=== PATIENT | male | born 1960 ===

== ENCOUNTER → 2018-09-26 21:36 | Outpatient (REF) | payer BC, SELFPAY ==
[2018-09-26 22:18] LABS: Cholesterol 181 mg/dL (140-199); HDL Cholesterol 82 mg/dL (40-60); LDL Cholesterol Calculated 89 mg/dL (<100); Triglycerides 52 mg/dL (35-150)
[2018-09-27 08:24] LABS: Free T3, Triiodothyronine Free 4.31 pg/mL (2.77-5.27); Free T4, Direct Thyroxine 0.81 ng/dL (0.78-2.19)
[2018-09-27 08:38] LABS: Thyroid Stimulating Hormone 3.34 uIU/mL (0.47-4.68)
== END ==
LOC: LAB 21:36
PROVIDERS: Visit Provider Family Medicine
DX: E03.9 Hypothyroidism, unspecified (principal)
CPT/HCPCS: 36415; 80061; 84439; 84443; 84481